=== PATIENT | male | born 2000 | race African-American/Black ===

== ENCOUNTER 2023-01-02 16:41 | Emergency (ER) | payer SELFPAY ==
--- NOTE | 2023-01-02 16:45 | ED.EYEPROB ---
HPI - Eye Problem General Chief complaint: Eye Problems Stated complaint: Rt Eye Irritation Time Seen by Provider: 01/02/23 17:10 Source: patient and RN notes reviewed Mode of arrival: ambulatory Limitations: no limitations History of Present Illness HPI Narrative: 22-year-old male presents with concern for foreign body in his right eye. Reports he was working under a car today when he felt something go in his eye. He works he rinsed his eye but he feels like he did not get out. He denies vision changes or drainage MD chief complaint: foreign body Related Data Allergies Allergy/AdvReac Type Severity Reaction Status Date / Time No Known Allergies Allergy Verified 01/02/23 16:53 Review of Systems Review of Systems: CONSTITUTIONAL: Denies malaise, chills, sweats, or fever. EYES: Denies visual changes. Reports sensation of foreign body and pain ENT: Denies rhinorrhea, congestion, sinus pain, otalgia or sore throat. SKIN: Denies rash or itching. NEUROLOGIC: Denies numbness, weakness, or headache. All systems reviewed & are unremarkable except as noted in HPI and below PMFSH Comments At time of signature, agree with nursing past medical, surgical, social and family history. There is no relevant family history pertinent to the presenting complaint Exam Narrative: GENERAL: Well-appearing, well-nourished, and in no acute distress. HEAD: Normocephalic, atraumatic. EYES: PERRLA, left sclera clear, and EOMI. No nystagmus. Right sclera injected, foreign body noted under the lid of the right eye, otherwise right Upper and lower eyelid unremarkable, no periorbital edema noted. No corneal abrasion noted upon with lamp exam, see note ENT: Nares clear, turbinates pink, no rhinorrhea or epistaxis. Mucous membranes moist. TM pearly morelos with sharp light reflex bilaterally; no tragal tenderness. NECK: Supple. CHEST: No respiratory distress. Speaks in full sentences. HEART: Regular rate and rhythm. SKIN: Warm, dry, no visible rash. NEURO: Alert and oriented x3. PSYCH: Normal mood and affect Course Course Emergency Course: Patient is aware of diagnosis, understands and agrees to treatment plan. Anticipatory guidance given. Patient agrees to follow-up as directed and is aware of reasons to seek care at the emergency department. Portions of this record may have been created with voice recognition software Level of Care: Express Care Visit Vital Signs Vital signs: Reviewed. Procedures FB Removal Eye Foreign Body #1: Foreign Body Removal Date: 01/02/23 Foreign Body Removal Time: 17:15 Time Out performed: Yes Location: eye (R) Topical anesthetic used: tetracaine Foreign body: other Evidence of corneal penetration: No Technique: irrigation Procedure performed under: direct visualization with magnification Patient tolerated procedure: well Foreign Body Removal Narrative: Tetracaine 1 gtt instilled in right eye, fluorescein stain applied. No corneal abrasion noted upon carrasco lamp exam. Eye washed with NS 100 ml. No foreign bodies or Booker sign noted. MDM - Eye Problem MDM Narrative Medical decision making narrative: Consideration of the following conditions may be warranted for the presenting problem, they are not final diagnoses: Bacterial conjunctivitis, allergic conjunctivitis, viral conjunctivitis, foreign body, blepharitis, chalazion, hordeolum, corneal abrasion, preseptal cellulitis, orbital cellulitis. No evidence of proptosis, ophthalmoplegia, vision loss, pain with eye movement. Exam findings show no acute concerns or changes; patient is non-toxic appearing and is in no distress. Patient is appropriate for outpatient treatment and follow-up. Critical Care Time Critical Care Time Critical Care Time: No Discharge Plan Discharge Clinical Impression: Foreign body of eyelid, right Patient Disposition: Home, Self-Care Condition:
[2023-01-02 16:52] VITALS: BP 126/72; PULSE 70; RESP 16; TEMP 36.3; O2SAT 100
[2023-01-02 16:53] VITALS: BP 126/72; PULSE 70; RESP 16; TEMP 36.3; O2SAT 100
== END 2023-01-02 17:56 | disposition home or self-care (01) ==
PROVIDERS: Emergency Provider Nurse Practitioner
DX: T15.11XA Foreign body in conjunctival sac, right eye, initial encounter (principal); X58.XXXA Exposure to other specified factors, initial encounter
CPT/HCPCS: 99203; A9270; G0463